=== PATIENT | male | born 1940 | race Caucasian/White ===

== ENCOUNTER → 2019-06-02 | Outpatient (CLI) | payer OTHER, BC ==
[~2019-06-02] VITALS: Ht 190.5 cm; Wt 88.5 kg
[~2019-06-02] MED LIST: B-121000 MC2 PO; CARDURA2 MG PO; CURCUMIN1 GM PO; MULTI VITAMIN1 EACH PO; OCUVITE TABLET1 EAC1 PO; PRESERVISION A1 EAC2 PO; PROSCAR 5MG TABL5 MG PO; SIMVASTATIN40 MG PO; TURMERIC500 M2 PO; VITAMIN D3400 UNIT PO
--- NOTE | 2019-06-05 09:58 | P ---
[facility] [place] [address] PROCEDURE REPORT Name: RIOS SCOTT Room #: REG [id number] Admission: 06/02/19 Attend Phys: Mateo Wright Discharge: Date of : 42 Report #: [id number] THIS REPORT FOR: cc: iPlo Martines MD,Mateo Payton MD, MD ~ CC: Nando Martines DATE OF SERVICE: 06/02/2019 PROCEDURE PERFORMED: Colonoscopy. HISTORY OF PRESENT ILLNESS: The patient is a 78-year-old male who presents today for routine screening colonoscopy. Last colonoscopy was approximately 6 years ago. He has a family history of colon cancer in his mother and sister. He denies any symptoms. DESCRIPTION OF PROCEDURE: The risks and benefits of the procedure were explained to the patient, those risks including but not limited to bleeding, perforation and the risk of sedation. He understood these risks and gave informed consent. Sedation was given using propofol per anesthesia. Next, a digital rectal exam was initially performed, which was normal. Next, using a standard Olympus colonoscope, the scope was placed in the patient's anus and advanced under direct vision to the cecum. The overall prep was excellent. The cecum and ileocecal valve were normal in appearance. Ascending, transverse, descending and sigmoid colon were all normal. The rectal mucosa was normal. On retroflexion, no abnormalities were noted. The scope was then withdrawn and the procedure terminated. The patient tolerated the procedure well. IMPRESSION: Normal colonoscopy. RECOMMENDATIONS: Repeat colonoscopy in 5 years. Thank you for allowing me to participate in his care. <ELECTRONICALLY SIGNED> By: Mateo Lamb MD 06/05/19 [id number] Mateo Lamb MD /nt
== END | disposition home or self-care (01) ==
LOC: GI 07:34
DX: Z12.11 Encounter for screening for malignant neoplasm of colon (principal); Z80.0 Family history of malignant neoplasm of digestive organs; E78.5 Hyperlipidemia, unspecified; N40.0 Benign prostatic hyperplasia without lower urinary tract symptoms; E78.00 Pure hypercholesterolemia, unspecified; Z98.890 Other specified postprocedural states; Z79.899 Other long term (current) drug therapy; Z85.820 Personal history of malignant melanoma of skin
CPT/HCPCS: 62110; 62900